=== PATIENT | female | born 1970 | race Caucasian/White ===

== ENCOUNTER 2017-07-26 15:44 | Observation (INO) | payer OTHER ==
[~2017-07-26] VITALS: Ht 157.5 cm; Wt 69.5 kg
[2017-07-26 16:10] LABS: BASO % 0.5 %; BASO ABS # 0.04 K/uL (0-0.2); COMPLETE YES; EOS % 1.5 %; HEMATOCRIT 36.7 % (37-47); IG% 0.2 %; LYMPH ABS # 3.29 K/uL (1.2-3.4); MEAN CELL VOLUME 85.5 fL (80-100); MEAN CORPUSCULAR HEMOGLOBIN 29.1 pg (25-34); MEAN CORPUSCULAR HGB CONC 34.1 g/dl (32-36); MEAN PLATELET VOLUME 10.2 fL (7.4-10.4); MONO % 6.3 %; NEUT % 51.5 %; PLATELET COUNT 267 K/uL (130-400); RED BLOOD COUNT 4.29 M/uL (4.2-5.4); WHITE BLOOD COUNT 8.23 K/uL (4.8-10.8)
--- NOTE | 2017-07-26 16:18 | DIAGNOSTIC IMAGING REPORT ---
CHEST ONE VIEW PORTABLE HISTORY: 47 years-old Female Chest Pain COMPARISON: Chest radiograph 06/18/2015 TECHNIQUE: Portable upright AP view of the chest FINDINGS: Cardiomediastinal and hilar silhouettes are within normal limits. No pneumothorax, pleural effusion or focal airspace consolidation. Bones are grossly intact. IMPRESSION: No acute cardiopulmonary process. The above report was generated using voice recognition software. It may contain grammatical, syntax or spelling errors. Electronically signed by: Rafal Souza M.D. 07/26/2017 4:17 PM Dictated Date/Time: 07/26/2017 4:16 PM
[2017-07-26 16:37] LABS: BLOOD UREA NITROGEN 9 mg/dl (7-18); CALCIUM 9.3 mg/dl (8.5-10.1); CARBON DIOXIDE 27 mmol/L (21-32); CHLORIDE 103 mmol/L (98-107); GLUCOSE 145 mg/dl (70-99); POTASSIUM 3.6 mmol/L (3.5-5.1); SODIUM 139 mmol/L (136-145)
[2017-07-26 16:42] LABS: CKMB/CK RATIO 1.2 (0-3.0)
[2017-07-26] MEDS ORDERED: LRS10 PO (17:03)
[2017-07-26] MEDS ORDERED: LPT40 PO (17:03)
[2017-07-26] MEDS ORDERED: HYDR25TA5 PO (17:03)
[2017-07-26] MEDS ORDERED: ULT50 PO (17:03)
[2017-07-26] MEDS ORDERED: PRM625 PO (17:03)
[2017-07-26] MEDS ORDERED: ASPI81TA28 PO (17:03)
[2017-07-26] MEDS ORDERED: MTR800 PO (17:03)
[2017-07-26] MEDS: NITROGLYCERIN 0.4 MG SL PER TAB CHARGE SL PRN ×2 (17:43→18:06)
[2017-07-26] MEDS ORDERED: ACETAMINOPHEN 325 MG TAB PO PRN (18:45)
[2017-07-26] MEDS ORDERED: NITROGLYCERIN 0.4 MG SL PER TAB CHARGE SL PRN (18:45)
[2017-07-26] MEDS ORDERED: ONDANSETRON INJ 2 MG/ML 2 ML VIAL IV PRN (18:45)
[2017-07-26] MEDS ORDERED: BACL1TAB PO (18:49)
[2017-07-26] MEDS ORDERED: IV FLUIDS COMPLETED PRN (19:15)
--- NOTE | 2017-07-26 20:08 | History and Physical ---
History & Physical Date & Time of Service: Jul 26, 2017 at 20:08 Chief Complaint: Chest Pain Primary Care Physician: Deacon Goddard M.D. History of Present Illness Source: patient This is a 47yo F with a PMH of HTN, HLD and h/o tobacco abuse who presents with chest pain x 2 days. Patient started to experience dull, constant left-sided chest pain last evening, which continued today. Pain radiates to both arms and is a sharp, constant pain. Chest pain is worse with positional changes but there is no change with exertion. Patient also endorses associated sweating, SOB , nausea and a dull headache. Has + family history of heart disease. Endorses being under increased emotional stress over the past few weeks. Denies fever, chills, abdominal pain, vomiting, LE swelling. Past Medical/Surgical History Medical Problems: (1) HLD (hyperlipidemia) Status: Chronic (2) HTN (hypertension) Status: Chronic (3) SVT (supraventricular tachycardia) Permanent Comment: Remote history. Last episode was 24 years ago. Status: Chronic (4) Tobacco abuse Status: Chronic Family History Cancer Diabetes mellitus Gallbladder disease Heart disease Hypertension Kidney disease Kidney stones Lung disease Social History Smoking Status: Former Smoker (48 pack years. Quit 27 days ago.) Alcohol Use: occasionally Marital Status: Immunizations History of Influenza Vaccine: No History of Tetanus Vaccine?: Yes History of Pneumococcal: No History of Hepatitis B Vaccine: No Multi-Drug Resistant Organisms History of MDRO: No Allergies Coded Allergies: Nystatin (Verified Allergy, Unknown, rash, 06/18/15) Valproic Acid (Unverified Adverse Reaction, Intermediate, "LOSES MIND", WALK INTO THINGS, 07/26/17) Home Medications Scheduled Aspirin (Aspirin Ec), 81 MG PO DAILY Atorvastatin (Atorvastatin Calcium), 40 MG PO DAILY Estrogens, Conjugated (Premarin), 0.625 MG PO DAILY Hydrochlorothiazide (Hydrochlorothiazide), 25 MG PO DAILY Ibuprofen (Ibuprofen), 800 MG PO TIDM Scheduled PRN Baclofen (Lioresal), 10 MG PO TID PRN for Pain Tramadol HCl (Tramadol HCl), 50 MG PO Q6 PRN for Pain Review of Systems Ten systems reviewed and negative except as noted in the HPI. Physical Exam Vital Signs Date Time Temp Pulse Resp B/P (MAP) Pulse Ox O2 Delivery O2 Flow Rate FiO2 07/26/17 18:18 78 20 106/57 97 Room Air 07/26/17 17:44 72 18 113/55 97 Room Air 07/26/17 16:42 74 18 127/84 96 Room Air 07/26/17 15:55 95 Room Air 07/26/17 15:55 76 07/26/17 15:55 36.6 77 20 121/68 95 Room Air 07/26/17 15:55 94 Room Air General Appearance: WD/WN, no apparent distress Head: normocephalic, atraumatic Eyes: normal inspection, sclerae normal ENT: hearing grossly normal Neck: supple, no adenopathy, trachea midline Respiratory/Chest: chest non-tender, lungs clear, normal breath sounds, no respiratory distress, no accessory muscle use Cardiovascular: regular rate, rhythm, no murmur, normal peripheral pulses Abdomen/GI: normal bowel sounds, non tender, soft, no organomegaly Extremities/Musculoskelatal: normal inspection Neurologic/Psych: no motor/sensory deficits, alert, normal mood/affect, oriented x 3 Skin: normal color, warm/dry, no rash Diagnostics Laboratory Results Results Past 24 Hours Test 07/26/17 15:20 Range/Units White Blood Count 8.23 4.8-10.8 K/uL Red Blood Count 4.29 4.2-5.4 M/uL Hemoglobin 12.5 12.0-16.0 g/dL Hematocrit 36.7 37-47 % Mean Corpuscular Volume 85.5 80-100 fL Mean Corpuscular Hemoglobin 29.1 25-34 pg Mean Corpuscular Hemoglobin Concent 34.1 32-36 g/dl Platelet Count 267 130-400 K/uL Mean Platelet Volume 10.2 7.4-10.4 fL Neutrophils (%) (Auto) 51.5 % Lymphocytes (%) (Auto) 40.0 % Monocytes (%) (Auto) 6.3 % Eosinophils (%) (Auto) 1.5 % Basophils (%) (Auto) 0.5 % Neutrophils # (Auto) 4.24 1.4-6.5 K/uL Lymphocytes # (Auto) 3.29 1.2-3.4 K/uL Monocytes # (Auto) 0.52 0.11-0.59 K/uL Eosinophils # (Auto) 0.12 0-0.5 K/uL Basophils # (Auto) 0.04 0-0.2 K/uL RDW Standard Deviation 39.7 36.4-46.3 fL RDW Coefficient of Variation 12.7 11.5-14.5 % Immature Granulocyte % (Auto) 0.2 % Immature Granulocyte # (Auto) 0.02 0.00-0.02 K/uL Sodium Level 139 136-145 mmol/L Potassium Level 3.6 3.5-5.1 mmol/L Chloride Level 103 98-107 mmol/L Carbon Dioxide Level 27 21-32 mmol/L Anion Gap 9.0 3-11 mmol/L Blood Urea Nitrogen 9 7-18 mg/dl Creatinine 0.90 0.60-1.20 mg/dl Est Creatinine Clear Calc Drug Dose 71.8 ml/min Estimated GFR () 88.3 Estimated GFR (Non- 76.1 BUN/Creatinine Ratio 10.0 10-20 Random Glucose 145 70-99 mg/dl Calcium Level 9.3 8.5-10.1 mg/dl Total Creatine Kinase 195 26-192 U/L Creatine Kinase MB 2.3 0.5-3.6 ng/ml Creatine Kinase MB Ratio 1.2 0-3.0 Troponin I < 0.015 0-0.045 ng/ml CXR normal EKG Normal sinus rhythm, Incomplete right bundle branch block, Left anterior fascicular block No change from prior EKG Impression Assessment and Plan This is a 47yo F with a PMH of HTN, HLD and h/o tobacco abuse who presents with chest pain x 2 days. Chest pain rule out: R/o ACS; risk factors include: + Family history, HTN, HLD, smoker Initial troponin negative EKG: Normal sinus rhythm, incomplete RBBB, L anterior fascicular block. Unchanged from previous EKG CXR- no acute cardiopulmonary change Trend serial cardiac enzymes Ordered echo Consult cardiology Repeat EKG in am HTN: -Normotensive -Continue HCTZ HLD: -Stable -Continue statin Chronic back pain: -Continue home regimen DVT Ppx: Lovenox Code status: FULL PCP: Rupesh Dispo: Plan to return home once medically stable Attending Physician, Dr. Izquierdo, Addendum I have examined the patient with PAOLA Caban and agree with the plan as above and would like to comment that: This is a 47 year old female with chest pain and when further asked on review of systems she reports headache and diaphoresis. Current benign EKG findings and negative initial troponin. No gross electrolyte abnormalities and no hypoglycemia on labs. On exam in the ED, patient is asymptomatic breathing and speaking comfortably on room air. No focal neurological findings on exam. Lungs are clear and heart rate is regular. Will place on observation telemetry, trend troponins, obtain TTE. Level of Care Telemetry Resuscitation Status FULL RESUSCITATION VTE Prophylaxis VTE Risk Assessment Done? Y/N: Yes Risk Level: Moderate Given or contraindicated: Enoxaparin (Lovenox)SQ Social Service Consult None Apply
[2017-07-26 21:56] VITALS: BP 132/81; PULSE 71; TEMP 36.6; O2SAT 99; Ht 157.5 cm; Wt 69.5 kg
--- NOTE | 2017-07-26 22:15 | EMERGENCY ROOM VISIT NOTE ---
History Report prepared by Jianibloreto: Fatuma Feng Under the Supervision of: Dr. Max Stevenson D.O. First contact with patient: 15:46 Stated Complaint: CHEST PAIN History of Present Illness The patient is a 47 year old female who presents to the Emergency Room with complaints of chest pain that started around 1300 this afternoon. She was brought to the ED via EMS. She rates her pain as an 8/10 and reports she also experienced a "tightness" in both of her arms, from her elbows down to her hands. She denies any recent trauma or injuries to her chest. She does admit to some diaphoresis and nausea, but she has not vomited. After her pain started, the patient drove to her doctor's office and states they gave her Aspirin and Nitroglycerin, which provided good pain relief. She notes she quit smoking recently, on June 01, 2017. She has a history of hypertension and hyperlipidemia. Dad had multiple heart attacks in his early 50s as well as her grandfather at 50 with an SD. The patient denies any headache, change in vision, fevers, shortness of breath, diarrhea, pain with urination, and melena. Source of History: patient Onset: 1300 today Position: chest Symptom Intensity: 8/10 Modifying Factors (Relieving): other (Aspirin, Nitroglycerin) Associated Symptoms: + diaphoresis, No fevers, No headache, No SOB, No nausea, No vomiting, No melena, No diarrhea, No urinary symptoms Review of Systems See HPI for pertinent positives & negatives. A total of 10 systems reviewed and were otherwise negative. Past Medical & Surgical Medical Problems: (1) HLD (hyperlipidemia) (2) HTN (hypertension) (3) SVT (supraventricular tachycardia) (4) Tobacco abuse Surgical Problems: (1) H/O: hysterectomy (2) History of appendectomy (3) History of cholecystectomy Family History Cancer Diabetes mellitus Gallbladder disease Heart disease Hypertension Kidney disease Kidney stones Lung disease Social History Smoking Status: Current Every Day Smoker Alcohol Use: none Drug Use: none Marital Status: Housing Status: lives with family Occupation Status: employed Current/Historical Medications Scheduled Aspirin (Aspirin Ec), 81 MG PO DAILY Atorvastatin (Atorvastatin Calcium), 40 MG PO DAILY Estrogens, Conjugated (Premarin), 0.625 MG PO DAILY Hydrochlorothiazide (Hydrochlorothiazide), 25 MG PO DAILY Ibuprofen (Ibuprofen), 800 MG PO TIDM Scheduled PRN Baclofen (Lioresal), 10 MG PO TID PRN for Pain Tramadol HCl (Tramadol HCl), 50 MG PO Q6 PRN for Pain Allergies Coded Allergies: Nystatin (Verified Allergy, Unknown, rash, 06/18/15) Valproic Acid (Unverified Adverse Reaction, Intermediate, "LOSES MIND", WALK INTO THINGS, 07/26/17) Physical Exam Vital Signs Date Time Temp Pulse Resp B/P (MAP) Pulse Ox O2 Delivery O2 Flow Rate FiO2 07/26/17 18:18 78 20 106/57 97 Room Air 07/26/17 17:44 72 18 113/55 97 Room Air 07/26/17 16:42 74 18 127/84 96 Room Air 07/26/17 15:55 95 Room Air 07/26/17 15:55 76 07/26/17 15:55 36.6 77 20 121/68 95 Room Air 07/26/17 15:55 94 Room Air Physical Exam GENERAL: Patient is sitting up in bed, alert, well appearing, well nourished, no distress, non-toxic EYE EXAM: normal conjunctiva OROPHARYNX: no exudate, no erythema, lips, buccal mucosa, and tongue normal and mucous membranes are moist NECK: supple, no nuchal rigidity, no adenopathy, non-tender LUNGS: Clear to auscultation. Normal chest wall mechanics HEART: no murmurs, S1 normal and S2 normal ABDOMEN: abdomen soft, non-tender, normo-active bowel sounds, no masses, no rebound or guarding. BACK: Back is symmetrical on inspection and there is no deformity, no midline tenderness, no CVA tenderness. SKIN: no rashes and no bruising UPPER EXTREMITIES: upper extremities are grossly normal. LOWER EXTREMITIES: No pitting edema. Calves are equal bilaterally. NEURO EXAM: Normal sensorium, cranial nerves II-XII grossly intact, normal speech, no gross weakness of arms, no gross weakness of legs. Gross sensation intact. Medical Decision & Procedures ER Provider Diagnostic Interpretation: Radiology results as stated below per my review and the radiologist's interpretation: CHEST ONE VIEW PORTABLE HISTORY: 47 years-old Female Chest Pain COMPARISON: Chest radiograph 06/18/2015 TECHNIQUE: Portable upright AP view of the chest FINDINGS: Cardiomediastinal and hilar silhouettes are within normal limits. No pneumothorax, pleural effusion or focal airspace consolidation. Bones are grossly intact. IMPRESSION: No acute cardiopulmonary process. The above report was generated using voice recognition software. It may contain grammatical, syntax or spelling errors. Electronically signed by: Rafal Souza M.D. 07/26/2017 4:17 PM Laboratory Results 07/26/17 15:20 Red Blood Count 4.29, Mean Corpuscular Volume 85.5, Mean Corpuscular Hemoglobin 29.1, Mean Corpuscular Hemoglobin Concent 34.1, Mean Platelet Volume 10.2, Neutrophils (%) (Auto) 51.5, Lymphocytes (%) (Auto) 40.0, Monocytes (%) (Auto) 6.3, Eosinophils (%) (Auto) 1.5, Basophils (%) (Auto) 0.5, Neutrophils # (Auto) 4.24, Lymphocytes # (Auto) 3.29, Monocytes # (Auto) 0.52, Eosinophils # (Auto) 0.12, Basophils # (Auto) 0.04 07/26/17 15:20 Test 07/26/17 15:20 White Blood Count 8.23 K/uL (4.8-10.8) Red Blood Count 4.29 M/uL (4.2-5.4) Hemoglobin 12.5 g/dL (12.0-16.0) Hematocrit 36.7 % (37-47) Mean Corpuscular Volume 85.5 fL (80-100) Mean Corpuscular Hemoglobin 29.1 pg (25-34) Mean Corpuscular Hemoglobin Concent 34.1 g/dl (32-36) Platelet Count 267 K/uL (130-400) Mean Platelet Volume 10.2 fL (7.4-10.4) Neutrophils (%) (Auto) 51.5 % Lymphocytes (%) (Auto) 40.0 % Monocytes (%) (Auto) 6.3 % Eosinophils (%) (Auto) 1.5 % Basophils (%) (Auto) 0.5 % Neutrophils # (Auto) 4.24 K/uL (1.4-6.5) Lymphocytes # (Auto) 3.29 K/uL (1.2-3.4) Monocytes # (Auto) 0.52 K/uL (0.11-0.59) Eosinophils # (Auto) 0.12 K/uL (0-0.5) Basophils # (Auto) 0.04 K/uL (0-0.2) RDW Standard Deviation 39.7 fL (36.4-46.3) RDW Coefficient of Variation 12.7 % (11.5-14.5) Immature Granulocyte % (Auto) 0.2 % Immature Granulocyte # (Auto) 0.02 K/uL (0.00-0.02) Anion Gap 9.0 mmol/L (3-11) Est Creatinine Clear Calc Drug Dose 71.8 ml/min Estimated GFR () 88.3 Estimated GFR (Non- 76.1 BUN/Creatinine Ratio 10.0 (10-20) Calcium Level 9.3 mg/dl (8.5-10.1) Total Creatine Kinase 195 U/L (26-192) Creatine Kinase MB 2.3 ng/ml (0.5-3.6) Creatine Kinase MB Ratio 1.2 (0-3.0) Troponin I < 0.015 ng/ml (0-0.045) Laboratory results per my review. Medications Administered Medications (Trade) Dose Ordered Sig/Wong Route Start Time Stop Time Status Last Admin Dose Admin Nitroglycerin (Nitrostat Tab) 0.4 mg Q5M PRN SL 07/26/17 17:45 07/26/17 21:57 DC 07/26/17 18:06 0.4 MG ECG Indication: chest pain Rate (beats per minute): 71 Rhythm: sinus rhythm Findings: left axis deviation, no ectopy ED Course ED COURSE: Vital signs were reviewed and showed normal vital signs. The patients medical record was reviewed The above diagnostic studies were performed and reviewed. ED treatments and interventions as stated above. 1548: The patient was evaluated in room B12. A complete history and physical examination was performed. 1738: Nursing informed me the patient is having chest pain again. 1745: Nitroglycerin 0.4 mg SL. 1815: Upon reevaluation, the patient is resting comfortably but does not feel ready to go home. I discussed my findings with the patient and she understands and agrees with the treatment plan. 1810: I discussed the patients case with Gaby Caban PA-C, [facility] Hospitalist. The patient will be further evaluated. Based on the patients age, coexisting illnesses, exam and lab findings the decision to treat as an inpatient was made. The patient remained stable while under my care. The patient will be evaluated for further management. Medical Decision Differential diagnoses includes but is not limited to acute coronary syndrome, myocardial infarction, pericarditis, pulmonary embolus, aortic dissection, pneumonia, pneumothorax, musculoskeletal, shingles, esophageal. Patient is a 47-year-old smoker with a past medical history of hypertension and hyperlipidemia and a strong family history of MIs that presents the ER with chest pain radiating to her bilateral arms associated with shortness of breath completely resolved with nitroglycerin. She was given aspirin prior to arrival. EKG and troponin were unremarkable. Chest x-ray was unremarkable. Pain recurred while in the ER and she was given nitroglycerin again with resolution of her pain. She was admitted to internal medicine with precordial chest pain. Medication Reconcilliation Current Medication List: was personally reviewed by me Blood Pressure Screening Patient's blood pressure: Low blood pressure Low blood pressure was felt to be situational. Consults Time Called: 1804 Consulting Physician: Gaby Caban PA-C, [facility] Returned Call: [phone] I discussed the patients case with Gaby Caban PA-C, [facility]. The patient will be further evaluated. Impression Primary Impression: Precordial chest pain Scribe Attestation The scribe's documentation has been prepared under my direction and personally reviewed by me in its entirety. I confirm that the note above accurately reflects all work, treatment, procedures, and medical decision making performed by me. Departure Information Dispostion Being Evaluated By Hospitalist Referrals No Doctor, Assigned (PCP)
[2017-07-26] MEDS: TRAMADOL HCL 50 MG TAB PO PRN (22:22)
[2017-07-26] MEDS: BACLOFEN 10 MG TAB PO PRN (22:22)
[2017-07-26] MEDS: IBUPROFEN 800 MG TAB PO SCH (22:26)
[2017-07-26 22:46] LABS: INR 0.9 (0.9-1.1); PROTHROMBIN TIME (PATIENT) 9.8 SECONDS (9.0-12.0)
[2017-07-26 23:03] VITALS: BP 113/74; PULSE 60; TEMP 36.6; O2SAT 97
[2017-07-27 02:52] VITALS: BP 106/73; PULSE 82; TEMP 36.9; O2SAT 97
[2017-07-27 07:27] VITALS: BP 100/62; PULSE 75; TEMP 36.9; O2SAT 95
[2017-07-27 07:50] LABS: CHOLESTEROL 105 mg/dl (0-200); HDL CHOLESTEROL 35 mg/dl; LDL CHOLESTEROL CALCULATED 39 mg/dl; TRIGLYCERIDES 157 mg/dl (0-150); VERY LOW DENSITY LIPOPROT CALC 31 mg/dl
[2017-07-27 08:00] VITALS: O2SAT 95
[2017-07-27] MEDS: IBUPROFEN 800 MG TAB PO SCH ×2 (08:31→12:09)
[2017-07-27] MEDS: BACLOFEN 10 MG TAB PO PRN (08:32)
[2017-07-27] MEDS: TRAMADOL HCL 50 MG TAB PO PRN (08:36)
[2017-07-27] MEDS ORDERED: ATORVASTATIN 40 MG TAB PO SCH (09:00)
[2017-07-27] MEDS ORDERED: ENOXAPARIN 40 MG/0.4 ML SYR SC SCH (09:00)
[2017-07-27] MEDS ORDERED: ESTROGENS, CONJUGATED 0.625 MG TAB PO SCH (09:00)
[2017-07-27] MEDS ORDERED: HYDROCHLOROTHIAZIDE 25 MG TAB PO SCH (09:00)
[2017-07-27] MEDS ORDERED: ASPIRIN 81 MG ECTAB PO SCH (09:00)
[2017-07-27] MEDS ORDERED: PERFLUTREN LIPID MICROSPHERE (DEFINITY) IV ONE (09:56)
--- NOTE | 2017-07-27 10:46 | EXERCISE STRESS ECHO ---
*NOTICE TO RECEIVING CONSTITUTION PARTY AGENCY This information is strictly Confidential and protected under [place] law. [place] law prohibits you from making any further disclosure of this information unless further disclosure is expressly permitted by the written consent of the person to whom it pertains or is authorized by law. A general authorization for the release of medical or other information is not sufficient for this purpose. Hospital accepts no responsibility if the information is made available to any other person, INCLUDING THE PATIENT. Interpretation Summary * Name: ADRIANE PENA Study Date: 07/27/2017 08:43 AM BP: 107/66 mmHg * Patient Location: [facility]\S\N288\S\2 HR: 71 * : 1970 (M/d/yyyy) Gender: Female Height: 62 in * Age: 47 yrs Ethnicity: [place] Weight: 158 lb * Ordering Physician: Lonnie Mcbride * Referring Physician: Self, Referred * Performed By: Lydia Lemus RDCS * * Reason For Study: CHEST PAIN * BSA: 1.7 m2 * -- Conclusions -- * Nonischemic exercise stress echocardiogram. * No arrhythmias. * Normal HR and BP response to exercise. * Reduced exercise tolerance. * Symptoms reproduced with exercise. * Normal LV chamber size with mild concentric LVH. * Normal LV systolic function without regonal wall motion abnormality, EF 60-65%. * No segmental left ventricular wall motion abnormalities are noted. * Grade II diastolic dysfunction. * No significant valvular pathology. Procedure Details * ECHOEX, CPT #15386 * A contrast injection of Definity was performed to improve assessment of LV function. * Contrast was injected into an intravenous site in the right arm. * One vial of Definity ultrasound contrast was diluted in normal saline to a total volume of 10 ml. A total of '4' ml of solution was administered during imaging. * Lot # [id number] of Definity utilized for procedure. * Expiration date SEP 15. * The attending nurse who injected the contrast agent was KEELY GALVAN RN. Left Ventricle * The left ventricle is normal in size. * There is mild concentric left ventricular hypertrophy. * Left ventricular systolic function is normal. * No segmental left ventricular wall motion abnormalities are noted. * Ejection Fraction = 60-65%. * Resting wall motion: Normal. Stress wall motion: Appropriate increase in Left ventricular systolic function and decrease in cavity size. No stress induced segmental wall motion abnormalities. Right Ventricle * The right ventricular cavity size is normal (basal dimension <4.2 cm in right ventricular apical 4-chamber view). * The right ventricular systolic function is normal as assessed by tricuspid annular plane systolic excursion (TAPSE) (normal >1.5 cm). Atria * The left atrial size is normal. * Right atrial size is normal. * No ASD detected; PFO is not assessed. Mitral Valve * The mitral valve is normal in structure and function. Tricuspid Valve * The tricuspid valve is normal in structure and function. Aortic Valve * The aortic valve is not well visualized. * No hemodynamically significant valvular aortic stenosis. * There is no significant aortic regurgitation. Pulmonic Valve * The pulmonary valve is not well seen, but the Doppler examination is normal without significant regurgitation or stenosis. Great Vessels * The aortic root and proximal ascending aorta are normal sized. Pericardium * There is no pericardial effusion. Stress Parameters * Normal baseline electrocardiogram. * Stress ECG: No ST changes. No arrhythmias. * No arrhythmia were noted with stress. * The stress portion of this study was personally supervised by the undersigned interpreting physician. * Rest heart rate was '71' BPM. * Rest blood pressure was '107/66' * Maximum heart rate achieved was 150 bpm. * Maximum heart rate was 86 % of maximum age-predicted heart rate. * Maximum blood pressure was '192/78' * Total exercise time was '6:01' * Maximum exercise MET level achieved was '7' METS * Maximum treadmill speed was '2.5' miles per hour. * Maximum treadmill elevation was '12'% grade. * Exercise was terminated due to 'ACHIEVING TARGET HR' Left Ventricular Diastolic Function * Diastolic dysfunction, Grade II (pseudonormalization pattern). Doppler Measurements and Calculations MV E max raven 116.5 cm/sec MV A max raven 96.3 cm/sec MV E/A 1.2 MV dec time 0.21 sec Ao V2 max 118.4 cm/sec Ao max PG 5.6 mmHg Ao max PG (full) 0.18 mmHg LV V1 max PG 5.4 mmHg LV V1 max 116.5 cm/sec
[2017-07-27 11:31] VITALS: BP 127/81; PULSE 74; TEMP 36.6; O2SAT 95
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
[2017-07-27 12:00] VITALS: O2SAT 95
--- NOTE | 2017-07-27 12:03 | Progress Note ---
Internal Med Progress Note Date of Service: Jul 27, 2017. Provider Documentation: SUBJECTIVE: Seen and examined at bedside. Reports chronic back pain Denies chest pain, SOB OBJECTIVE: Vital Signs-as noted below Physical Exam: Vitals signs as noted above General Appearance:Moderately built and nourished, no apparent distress Head: normocephalic, Atraumatic Eyes: normal inspection, EOMI, PERRL Neck: supple, Trachea midline Respiratory/Chest: Normal breath sounds, CTA Cardiovascular: S1, S2, No murmur Abdomen/GI:Soft, Non tender, Bowel sounds present Extremities/Musculoskelatal:normal inspection, no edema Neurologic/Psych:grossly no focal neurological deficits Skin: normal color, warm Lab data as noted below. ASSESSMENT & PLAN: Patient is a 47yr female with a PMH of HTN, HLD and h/o tobacco abuse who presents with chest pain for 2 days. Chest pain rule out: ACS Likely referred back pain risk factors include: + Family history, HTN, HLD, smoker Cardiac enzymes X3: Negative EKG: NSR, incomplete RBBB, LAFB. Unchanged from previous EKG CXR- no acute cardiopulmonary change Stress ECHO:Nonischemic exercise stress echocardiogram Appreciate cardiology input HTN: Continue HCTZ HLD: Stable Continue statin Chronic back pain: Continue home regimen DVT Px: Lovenox Code status: FULL Dispo: Plan to discharge home today Follow up with your Primary Care physician on 07/29/17 at 10:45AM Seek immediate medical attention if your symptoms reoccur or worsen PROCEDURES: Stress ECHO: * Nonischemic exercise stress echocardiogram. * No arrhythmias. * Normal HR and BP response to exercise. * Reduced exercise tolerance. * Symptoms reproduced with exercise. * Normal LV chamber size with mild concentric LVH. * Normal LV systolic function without regonal wall motion abnormality, EF 60- 65%. * No segmental left ventricular wall motion abnormalities are noted. * Grade II diastolic dysfunction. * No significant valvular pathology. Vital Signs: Date Time Temp Pulse Resp B/P (MAP) Pulse Ox O2 Delivery O2 Flow Rate FiO2 07/27/17 11:31 36.6 74 18 127/81 (96) 95 Room Air 07/27/17 08:00 95 Room Air 07/27/17 07:27 36.9 75 18 100/62 (75) 95 Room Air 07/27/17 04:00 Room Air 07/27/17 02:52 36.9 82 18 106/73 (84) 97 Room Air 07/27/17 00:00 Room Air 07/26/17 23:03 36.6 60 18 113/74 (87) 97 Room Air 07/26/17 21:56 36.6 71 18 132/81 99 Room Air 07/26/17 20:37 77 18 105/68 99 Room Air 07/26/17 18:18 78 20 106/57 97 Room Air 07/26/17 17:44 72 18 113/55 97 Room Air 07/26/17 16:42 74 18 127/84 96 Room Air 07/26/17 15:55 95 Room Air 07/26/17 15:55 76 07/26/17 15:55 36.6 77 20 121/68 95 Room Air 07/26/17 15:55 94 Room Air Lab Results: Results Past 24 Hours Test 07/26/17 15:20 07/27/17 00:23 07/27/17 06:38 Range/Units White Blood Count 8.23 4.8-10.8 K/uL Red Blood Count 4.29 4.2-5.4 M/uL Hemoglobin 12.5 12.0-16.0 g/dL Hematocrit 36.7 37-47 % Mean Corpuscular Volume 85.5 80-100 fL Mean Corpuscular Hemoglobin 29.1 25-34 pg Mean Corpuscular Hemoglobin Concent 34.1 32-36 g/dl Platelet Count 267 130-400 K/uL Mean Platelet Volume 10.2 7.4-10.4 fL Neutrophils (%) (Auto) 51.5 % Lymphocytes (%) (Auto) 40.0 % Monocytes (%) (Auto) 6.3 % Eosinophils (%) (Auto) 1.5 % Basophils (%) (Auto) 0.5 % Neutrophils # (Auto) 4.24 1.4-6.5 K/uL Lymphocytes # (Auto) 3.29 1.2-3.4 K/uL Monocytes # (Auto) 0.52 0.11-0.59 K/uL Eosinophils # (Auto) 0.12 0-0.5 K/uL Basophils # (Auto) 0.04 0-0.2 K/uL RDW Standard Deviation 39.7 36.4-46.3 fL RDW Coefficient of Variation 12.7 11.5-14.5 % Immature Granulocyte % (Auto) 0.2 % Immature Granulocyte # (Auto) 0.02 0.00-0.02 K/uL Prothrombin Time 9.8 9.0-12.0 SECONDS Prothromb Time International Ratio 0.9 0.9-1.1 Activated Partial Thromboplast Time 26.3 21.0-31.0 SECONDS Partial Thromboplastin Ratio 1.0 Sodium Level 139 136-145 mmol/L Potassium Level 3.6 3.5-5.1 mmol/L Chloride Level 103 98-107 mmol/L Carbon Dioxide Level 27 21-32 mmol/L Anion Gap 9.0 3-11 mmol/L Blood Urea Nitrogen 9 7-18 mg/dl Creatinine 0.90 0.60-1.20 mg/dl Est Creatinine Clear Calc Drug Dose 71.8 ml/min Estimated GFR () 88.3 Estimated GFR (Non- 76.1 BUN/Creatinine Ratio 10.0 10-20 Random Glucose 145 70-99 mg/dl Calcium Level 9.3 8.5-10.1 mg/dl Total Creatine Kinase 195 147 125 26-192 U/L Creatine Kinase MB 2.3 1.5 1.3 0.5-3.6 ng/ml Creatine Kinase MB Ratio 1.2 1.0 1.0 0-3.0 Troponin I < 0.015 < 0.015 < 0.015 0-0.045 ng/ml Triglycerides Level 157 0-150 mg/dl Cholesterol Level 105 0-200 mg/dl HDL Cholesterol 35 mg/dl LDL Cholesterol, Calculated 39 mg/dl VLDL Cholesterol, Calculated 31 mg/dl Cholesterol/HDL Ratio 3.0
--- NOTE | 2017-07-27 12:22 | Discharge Summary ---
Discharge Summary Date of Service Jul 27, 2017. Discharge Summary Admission Date: Jul 26, 2017 at 18:48 Discharge Date: Jul 27, 2017 Discharge Disposition: Home Principal Diagnosis: Chest Pain:ruled out ACS Procedures: CXR: No acute cardiopulmonary process Stress ECHO: * Nonischemic exercise stress echocardiogram. * No arrhythmias. * Normal HR and BP response to exercise. * Reduced exercise tolerance. * Symptoms reproduced with exercise. * Normal LV chamber size with mild concentric LVH. * Normal LV systolic function without regonal wall motion abnormality, EF 60- 65%. * No segmental left ventricular wall motion abnormalities are noted. * Grade II diastolic dysfunction. * No significant valvular pathology. Consultations: Cardiology Pending Studies/Follow-Up: Follow up with your Primary Care physician on 07/29/17 at 10:45AM Seek immediate medical attention if your symptoms reoccur or worsen Medication Reconciliation Continued Medications: Aspirin (Aspirin Ec) 81 Mg Tab 81 MG PO DAILY Atorvastatin (Atorvastatin Calcium) 40 Mg Tab 40 MG PO DAILY Baclofen (Lioresal) 10 Mg Tab 10 MG PO TID PRN for Pain, TAB Estrogens, Conjugated (Premarin) 0.625 Mg Tab 0.625 MG PO DAILY Hydrochlorothiazide (Hydrochlorothiazide) 25 Mg Tab 25 MG PO DAILY Ibuprofen (Ibuprofen) 800 Mg Tab 800 MG PO TIDM Tramadol HCl (Tramadol HCl) 50 Mg Tab 50 MG PO Q6 PRN for Pain Admission Information HPI (per Admitting provider): This is a 47yo F with a PMH of HTN, HLD and h/o tobacco abuse who presents with chest pain x 2 days. Patient started to experience dull, constant left-sided chest pain last evening, which continued today. Pain radiates to both arms and is a sharp, constant pain. Chest pain is worse with positional changes but there is no change with exertion. Patient also endorses associated sweating, SOB , nausea and a dull headache. Has + family history of heart disease. Endorses being under increased emotional stress over the past few weeks. Denies fever, chills, abdominal pain, vomiting, LE swelling. Physical Exam (per Admitting): General Appearance: WD/WN, no apparent distress Head: normocephalic, atraumatic Eyes: normal inspection, sclerae normal ENT: hearing grossly normal Neck: supple, no adenopathy, trachea midline Respiratory/Chest: chest non-tender, lungs clear, normal breath sounds, no respiratory distress, no accessory muscle use Cardiovascular: regular rate, rhythm, no murmur, normal peripheral pulses Abdomen/GI: normal bowel sounds, non tender, soft, no organomegaly Extremities/Musculoskelatal: normal inspection Neurologic/Psych: no motor/sensory deficits, alert, normal mood/affect, oriented x 3 Skin: normal color, warm/dry, no rash Hospital Course Patient is a 47yr female with a PMH of HTN, HLD and h/o tobacco abuse who presents with chest pain for 2 days. Chest pain rule out: ACS Likely referred back pain risk factors include: + Family history, HTN, HLD, smoker Cardiac enzymes X3: Negative EKG: NSR, incomplete RBBB, LAFB. Unchanged from previous EKG CXR- no acute cardiopulmonary change Stress ECHO:Nonischemic exercise stress echocardiogram Appreciate cardiology input HTN: Continue HCTZ HLD: Stable Continue statin Chronic back pain: Continue home regimen DVT Px: Lovenox Code status: FULL Dispo: Plan to discharge home today Follow up with your Primary Care physician on 07/29/17 at 10:45AM Seek immediate medical attention if your symptoms reoccur or worsen PROCEDURES: Stress ECHO: * Nonischemic exercise stress echocardiogram. * No arrhythmias. * Normal HR and BP response to exercise. * Reduced exercise tolerance. * Symptoms reproduced with exercise. * Normal LV chamber size with mild concentric LVH. * Normal LV systolic function without regonal wall motion abnormality, EF 60- 65%. * No segmental left ventricular wall motion abnormalities are noted. * Grade II diastolic dysfunction. * No significant valvular pathology. Total time spent on discharge = This includes examination of the patient, discharge planning, medication reconciliation, and communication with other providers. Discharge Instructions Discharge Instructions Date of Service Jul 27, 2017. Admission Reason for Admission: Chest Pain Discharge Discharge Diagnosis / Problem: Chest Pain:ruled out ACS Discharge Goals Goal(s): Decrease discomfort, Improve function Activity Recommendations Activity Limitations: resume your previous activity Exercise/Sports Limitations: as tolerated Driving or Machine Use: Do not drive until cleared by your PCP . Instructions / Follow-Up Instructions / Follow-Up Follow up with your Primary Care physician on 07/29/17 at 10:45AM Seek immediate medical attention if your symptoms reoccur or worsen Current Hospital Diet Patient's current hospital diet: AHA Diet (Heart Healthy), Low Fat Diet Discharge Diet Recommended Diet: AHA Diet (Heart Healthy), Low Fat Diet Pending Studies Studies pending at discharge: no Laboratory Results Lipid Panel Test 07/27/17 06:38 Range/Units Triglycerides Level 157 H 0-150 mg/dl Cholesterol Level 105 0-200 mg/dl HDL Cholesterol 35 mg/dl Cholesterol/HDL Ratio 3.0 LDL Cholesterol, Calculated 39 mg/dl Medical Emergencies . Who to Call and When: Medical Emergencies: If at any time you feel your situation is an emergency, please call 911 immediately. . Non-Emergent Contact Non-Emergency issues call your: Primary Care Provider Call Non-Emergent contact if: you have a fever, your pain is not controlled, your pain is worsening, your pain is unusual for you, your pain is concerning you, you have any medication questions . . "Provider Documentation" section prepared by Adán Nguyễn. . VTE Core Measure Inpt VTE Proph given/why not?: Enoxaparin (Lovenox)SQ
[2017-07-27 12:26] VITALS: BP 127/81; PULSE 74; TEMP 36.6; O2SAT 95
== END 2017-07-27 13:39 | disposition home or self-care (01) ==
LOC: EDBD 15:44 → C.EDB 15:45 → C.MED 18:48 → ENRESERV 20:08
PROVIDERS: ADMIT Hospitalist; ATTEND Internal Medicine
DX: R07.2 Precordial pain (principal); E78.5 Hyperlipidemia, unspecified; I10 Essential (primary) hypertension; I47.1 Supraventricular tachycardia; F17.200 Nicotine dependence, unspecified, uncomplicated; Z90.710 Acquired absence of both cervix and uterus; Z90.89 Acquired absence of other organs; Z90.49 Acquired absence of other specified parts of digestive tract; Z83.3 Family history of diabetes mellitus; Z80.1 Family history of malignant neoplasm of trachea, bronchus and lung; Z82.49 Family history of ischemic heart disease and other diseases of the circulatory system; Z84.1 Family history of disorders of kidney and ureter; Z79.82 Long term (current) use of aspirin; M54.5 Low back pain; M54.2 Cervicalgia; G89.21 Chronic pain due to trauma